=== PATIENT | female | born 1950 | race Caucasian/White ===

== ENCOUNTER → 2021-06-01 | Outpatient (CLI) | payer MEDICARE, MEDICAID ==
[~2021-06-01] VITALS: Ht 152 cm; Wt 86.3 kg
[~2021-06-01] MED LIST: CASIRIVIMAB/IMDEVIMAB 1,200 MG in NS (IVPB) 250 ML IV ONE; EPINEPHrine INJECTION 1 MG/ML AMP IM PRN; diphenhydrAMINE 50 MG/ML INJ (BENADRYL) IV PRN
[2021-06-01 12:16] VITALS: BP 165/94
[2021-06-01 13:21] VITALS: BP 129/59
== END ==
LOC: INFUSION 12:09
PROVIDERS: ATTEND Family Medicine
DX: Z23 Encounter for immunization (principal); U07.1 COVID-19